=== PATIENT | male | born 1995 | race African-American/Black ===

== ENCOUNTER 2021-05-20 00:41 | Emergency (ER) | payer OTHER ==
[2021-05-20 03:26] VITALS: BP 145/90
--- NOTE | 2021-05-20 04:37 | ED Physician Documentation ---
ED Addendum - Addendum Addendum: 05/20/21 04:37 called patient to notify him of radiology read on oblique nondisplaced fx of 4th .
--- NOTE | 2021-05-20 08:16 | XRAY Report ---
PROCEDURE: Finger(s) RT INDICATIONS: PAIN, INJURY TECHNIQUE: AP hand, 3 views of the right fourth finger(s) acquired. COMPARISON: None FINDINGS: Bones: Mildly displaced oblique fracture of the proximal fourth metacarpal. No suspicious bony lesion s. Soft tissues: No suspicious soft tissue calcifications. IMPRESSION: Fourth metacarpal fracture. Concordant with preliminary interpretation. Reviewed by: Angela Gamble MD on 05/20/2021 8:15 AM [facility] Approved by: Angela Gamble MD on 05/20/2021 8:15 AM PST Station ID: [id number]
== END 2021-05-20 04:08 | disposition home or self-care (01) ==
LOC: ED 00:41
DX: S62.344A Nondisplaced fracture of base of fourth metacarpal bone, right hand, initial encounter for closed fracture (principal); S80.211A Abrasion, right knee, initial encounter; V43.52XA Car driver injured in collision with other type car in traffic accident, initial encounter; Y92.410 Unspecified street and highway as the place of occurrence of the external cause
CPT/HCPCS: 99282; 99283